=== PATIENT | male | born 1995 | race African-American/Black ===

== ENCOUNTER 2020-12-18 11:13 | Emergency (ER) | payer BC ==
[~2020-12-18] VITALS: Ht 180.3 cm; Wt 97.5 kg
[2020-12-18] MEDS ORDERED: MOBIC7.5 MG PO (14:33)
[2020-12-18] MEDS ORDERED: ZANAFLEX4 MG PO (14:33)
[2020-12-18] MEDS ORDERED: MEDROLDOSEPACK PO (14:33)
[2020-12-18 14:51] VITALS: BP 121/73
== END 2020-12-18 14:51 | disposition home or self-care (01) ==
LOC: ER 11:13
DX: M54.50 Low back pain, unspecified (principal); F12.90 Cannabis use, unspecified, uncomplicated